=== PATIENT | male | born 1980 | race Caucasian/White ===

== ENCOUNTER → 2020-07-08 12:34 | Outpatient (CLI) | payer OTHER, SELFPAY ==
--- NOTE | ~2020-07-08 | XR_ITS ---
XR chest 2V DATE: 07/08/2020 12:50 INDICATION: Chest pain TECHNIQUE: PA and lateral views COMPARISON: None FINDINGS: Normal heart size. No hilar or mediastinal enlargement. No pulmonary infiltrate or consolid ation, pleural effusion or pulmonary vascular congestion or pneumothorax. Included skeletal structures are unremarkable. Surgical clips overlie the right upper quadrant, likely due to cholecystectomy IMPRESSION: No active cardiopulmonary disease Reviewed, dictated and finalized at location B.
== END ==
PROVIDERS: PCP Family Medicine; Visit Provider Physician Assistant
DX: R07.9 Chest pain, unspecified (principal)
CPT/HCPCS: 71046

== ENCOUNTER 2022-07-07 17:39 | Emergency (ER) | payer OTHER, SELFPAY ==
--- NOTE | ~2022-07-07 | XR_ITS ---
EXAMINATION: XR thoracic spine 3V DATE: 07/07/2022 18:24 INDICATION: Left back pain post fall TECHNIQUE: One AP, lateral and lateral swimmer's views of the thoracic spine were obtained. COMPARISON: None. FINDINGS: Alignment is normal. Vertebral body heights are normal. Mild disc height loss and mild degenerative e ndplate changes at a few levels the mid thoracic spine. Visualized portion of lungs are clear with no pleural effusion or pneumothorax. Heart size is normal. Cholecystectomy clips in right upper quadran t. IMPRESSION: 1. Mild midthoracic spondylosis. Reviewed, dictated and finalized at location A.
[2022-07-07 17:49] VITALS: BP 135/85; PULSE 57; RESP 16; TEMP 36.6; O2SAT 99
--- NOTE | 2022-07-07 18:22 | ED.FALL ---
HPI - Fall General Chief Complaint: Fall Stated Complaint: Fall Injury/Back Pain Time Seen by Provider: 07/07/22 18:05 Source: patient, RN notes reviewed and old records reviewed Mode of arrival: ambulatory Limitations: no limitations History of Present Illness HPI Narrative: 41-year-old male need by presents to Express Care with complaints of injury to thoracic back region with most intensity on left side. patient denies any shortness of breath has lung sounds in all quadrant cummins. Patient reports that his feet flew out from under him and he hit his left thoracic back on step which knocked the wind out of him. Patient reports soreness across thoracic region with pain mainly on left thoracic area on palpation. Patient has taken some Ibuprofen and has applied ice to area.Patient denies hitting his head or any LOC. MD complaint: fall Onset (ago): hour(s) (1400) Fall from: from height (distance) (5-7 feet) Place fall occurred: home Loss of consciousness: none Severity scale (1-10): 3 Associated symptoms (after fall): other (thoracic pain and muscle spasm) Related Data Allergies Allergy/AdvReac Type Severity Reaction Status Date / Time Penicillins Allergy Unknown rash Verified 05/11/21 11:40 Review of Systems Review of Systems: CONSTITUTIONAL: Denies fever, chills, or sweats. CARDIOVASCULAR: Denies chest pain, palpitations, or edema. RESPIRATORY: Denies cough or dyspnea. GASTROINTESTINAL: Denies abdominal pain, nausea, vomiting, or diarrhea. GENITOURINARY: Denies dysuria or hematuria. SKIN: Denies rash or itching. MUSCULOSKELETAL: Reports thoracic back pain. Joint pain or myalgia. NEUROLOGIC: Denies headache, numbness, or weakness. All systems reviewed & are unremarkable except as noted in HPI and below [facility] Past Medical History Medical History (Updated 07/08/22 @ 16:34 by Isabell Rene NP) Dental root implant present Surgical History Surgical History (Updated 07/08/22 @ 16:25 by Isabell Rene NP) H/O bone graft Hx laparoscopic cholecystectomy Social History Social History (Updated 07/08/22 @ 16:24 by Isabell Rene NP) Smoking status: Never smoker Alcohol intake: current Substance use type: does not use Living arrangements: with family Gender identity (if verbalized by the patient): Male Comments At time of signature, agree with nursing past medical, surgical, social and family history. There is no relevant family history pertinent to the presenting complaint Exam Narrative: GENERAL: Well-appearing, well-nourished, and in no acute distress. HEAD: Normocephalic, atraumatic. EYES: PERRLA and EOMI. NECK: Supple. No lymphadenopathy. CHEST: Clear to auscultation. No respiratory distress. HEART: Regular rate and rhythm. Distal pulses palpable and equal, cap refill <3 seconds ABDOMEN: Soft, nontender, nondistended, normal active bowel sounds, no palpable or pulsatile masses. No CVA tenderness MUSCULOSKELETAL: Normal range of motion and strength in all extremities; 5/5 strength with hip flexion and extension, dorsiflexion and extension, knee flexion and extension, plantar flexion and extension. Normal sensation in dermatomal distributions with sensitivity to light touch and pain. No midline back tenderness to palpation. No paraspinal tenderness. Transfers from lying to sitting to standing. SKIN: Warm, dry, no rash. No ecchymosis, erythema, open wounds to back. NEURO: No focal deficits. Alert and oriented x3. Reflexes intact. Normal gait. PSYCH: Normal mood and affect Course Course Emergency Course: Patient is aware of diagnosis, understands and agrees to treatment plan. Anticipatory guidance given. Patient agrees to follow-up as directed and is aware of reasons to seek care at the emergency department. Portions of this record may have been created with voice recognition software Level of Care: Express Care Visit Vital Signs Vital signs: Vital Sign
== END 2022-07-07 18:54 | disposition home or self-care (01) ==
PROVIDERS: Emergency Provider Registered Nurse; PCP Family Medicine
DX: M54.6 Pain in thoracic spine (principal)
CPT/HCPCS: 72072; 99213; G0463

== ENCOUNTER 2025-01-09 00:12 | Day surgery (SDC) | payer OTHER, SELFPAY ==
[2024-12-23 13:53] VITALS: BMI 25.3
--- OUTSIDE RECORDS SUMMARY | 2025-01-09 00:21 | XMS_ITS | Clinical Summary ---
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 Name Role Phone Unavailable Primary Care Provider Unavailabl e Social History Tobacco Use Types Packs/Day Years Used Date Smoking Tobacco: Never Assessed Sex and Gender Information Value Date Recorded Sex Assigned at Not on file Legal Sex Male 8:06 PM CDT Gender Identity Not on file Sexual Orientation Not on file Plan of Treatment Health Maintenance Due Date Last Done Comments Colorectal Cancer Screening Colonoscopy (10 Years) 1979 Annual Physical 10/15/1982 Hepatitis C 10/15/1997 DTaP, Tdap and Td Vaccines ( 1 - Tdap) 10/15/1998 Hepatitis B Vaccines (1 of 3 - 19+ 3-dose series) 10/15/1998 HPV Vaccines (1 - 3-dose SCD M series) 10/15/2006 COVID-19 Vaccine (2024-2 6 season) 2024 Influenza Adult (#1) 2024 Hepatitis A Vaccines Aged Out No long er eligible based on patient's age to complete this topic Meningococcal B Vaccine Aged Out No l onger eligible based on patient's age to complete this topic Meningococcal Vaccine Aged Out No daphne karli eligible based on patient's age to complete this topic Pneumococcal Vaccine: Pediat rics (0 to 5 Years) and At-Risk Patients (6 to 49 Years) Aged Out No longer eligible b ased on patient's age to complete this topic RSV Immunizations Under 20 Months Aged Out No longer eligible based on patient's age to complete this topic
[2025-01-09 11:55] VITALS: BP 159/88; PULSE 60; RESP 18; TEMP 36.4; O2SAT 99; BMI 25.3
[2025-01-09] MEDS: LACTATED RINGERS 1,000 ML 150 ML IV CONT (12:05)
--- NOTE | 2025-01-09 12:32 | WPDANESEPPF ---
Anes - Initial Pre Proc Eval Procedure: Operation Date: 01/09/25 13:00 Proposed Procedures p Screening Colonoscopy - Harrison Xavier MD <Melanie Lyn CRNA - Last Filed: 01/09/25 13:03> Date/Time: 01/09/25 12:32 <Melanie Lyn CRNA - Last Filed: 01/09/25 13:03> Surgeon: Harrison Xavier MD <Melanie Lyn CRNA - Last Filed: 01/09/25 13:03> Pre Op Diagnosis: Encounter for screening for malignant neoplasm of <Melanie Lyn CRNA - Last Filed: 01/09/25 13:03> Patient Data Age: 44 Gender: M Height: 1.65 m Weight: 69 kg <Melanie Lyn CRNA - Last Filed: 01/09/25 13:03> Last Vital Signs Temp 36.4 C 01/09/25 11:55 Pulse 60 01/09/25 11:55 Resp 18 01/09/25 11:55 BP 159/88 H 01/09/25 11:55 Pulse Ox 99 01/09/25 11:55 O2 Del Method Room Air 01/09/25 11:55 <Melanie Lyn CRNA - Last Filed: 01/09/25 13:03> Allergies Allergy/AdvReac Type Severity Reaction Status Date / Time Penicillins Allergy Unknown rash Verified 01/09/25 11:49 <Melanie Lyn CRNA - Last Filed: 01/09/25 13:03> Home Medications ?Medication ?Instructions ?Recorded ?Confirmed ?Type No Home Medications 06/20/24 12/23/24 History <Melanie Lyn CRNA - Last Filed: 01/09/25 13:03> Patient hx anesthesia problems: none <Melanie Lyn CRNA - Last Filed: 01/09/25 13:03> Family hx anesthesia problems: none <Melanie Lyn CRNA - Last Filed: 01/09/25 13:03> Results Review: All pre-operative results and documents have been reviewed as part of the pre-operative evaluation. <Melanie Lyn CRNA - Last Filed: 01/09/25 13:03> [facility] Past Medical History Medical History: Medical History Gallbladder disorder Lipoma of other skin and subcutaneous tissue Dental root implant present <Melanie Lyn CRNA - Last Filed: 01/09/25 13:03> Surgical History Surgical History: Surgical History H/O bone graft Hx laparoscopic cholecystectomy <Melanie Lyn CRNA - Last Filed: 01/09/25 13:03> Family History Family History: Family History Mother Hypertension Father Hypertension Sibling Hypertension Grandparent Diabetes mellitus Cancer <Melanie Lyn CRNA - Last Filed: 01/09/25 13:03> Social History Social History: Social History Smoking status: Never smoker Alcohol intake: current Drinks per week: 2 Alcohol use details: whisky Substance use: never Substance use type: does not use Do You Feel Safe in your Home?: Yes Lack of Transportation: No Lack of Food: Never True Current Housing: I Have Housing Concerned About Future Housing: No Difficulty Paying Gas/Electric Bills: No Difficulty Paying for Meds: No Currently Unemployed: No Education: Master's Degree or Higher Difficulty w/ Childcare or Family Care: No Living arrangements: with family Occupation/Education: occupation 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 Gender identity (if verbalized by the patient): Male Sexual Orientation (if Verbalized by the Patient): Straight or Heterosexual Spiritual care concerns: No Agree to blood products: Yes <Melanie Lyn CRNA - Last Filed: 01/09/25 13:03> Anes - Eval Final PreProcedure Day of Procedure 01/09/25 12:32 <Melanie Lyn CRNA - Last Filed: 01/09/25 13:03> Patient weight: normal <Melanie Lyn CRNA - Last Filed: 01/09/25 13:03> normal <Jed Nagel, DO - Last Filed: 01/09/25 13:58> Heart: regular rate and rhythm <Melanie Lyn SEAFOOD TECHNOLOGY SPECIALIST - Last Filed: 01/09/25 13:03> regular rate and rhythm <Jed Nagel, DO - Last Filed: 01/09/25 13:58> Lungs: clear to auscultation <Melanie Lyn SEAFOOD TECHNOLOGY SPECIALIST - Last Filed: 01/09/25 13:03> clear to auscultation <Jed Nagel, DO - Last Filed: 01/09/25 13:58> Airway: Mallampati scale class 1 <Melanie Lyn SEAFOOD TECHNOLOGY SPECIALIST - Last Filed: 01/09/25 13:03> Mallampati scale class 1 <Jed Nagel, DO - Last Filed: 01/09/25 13:58> Neurological: alert and oriented <Melanie Lyn SEAFOOD TECHNOLOGY SPECIALIST - Last Filed: 01/09/25 13:03> alert and oriented <Jed Nagel, DO - Last Filed: 01/09/25 13:58> Last oral intake: >/= 8 hours <Melanie Lyn SEAFOOD TECHNOLOGY SPECIALIST - Last Filed: 01/09/25 13:03> >/= 8 hours <Jed Nagel, DO - Last Filed: 01/09/25 13:58> ASA classification: I <Melanie Lyn SEAFOOD TECHNOLOGY SPECIALIST - Last Filed: 01/09/25 13:03> I <Jed Nagel, DO - Last Filed: 01/09/25 13:58> Emergent: no <Melanie Lyn SEAFOOD TECHNOLOGY SPECIALIST - Last Filed: 01/09/25 13:03> no <Jed Nagel, DO - Last Filed: 01/09/25 13:58> Anesthetic plan: proceed <Melanie Lyn SEAFOOD TECHNOLOGY SPECIALIST - Last Filed: 01/09/25 13:03> proceed <Jed Nagel, DO - Last Filed: 01/09/25 13:58> Anesthesia type and monitoring: general GIVS and standard monitoring <Melanie Lyn CRNA - Last Filed: 01/09/25 13:03> general GIVS and standard monitoring <Jed Nagel DO - Last Filed: 01/09/25 13:58> Results Review: All pre-operative results and documents have been reviewed as part of the pre-operative evaluation. <Melanie Lyn CRNA - Last Filed: 01/09/25 13:03> Informed Consent: The patient's anesthetic plan and its attendant risks and benefits were discussed with the patient/family/POA. Questions were solicited and answers provided to the satisfaction of the patient/family/POA. <Melanie Lyn CRNA - Last Filed: 01/09/25 13:03>
--- NOTE | 2025-01-09 13:00 | P.HP_ITS ---
H&P: HPI History of Present Illness Date/Time: 01/09/25 13:00 Chief Complaint: Screening colonoscopy Narrative: This is the patient's first colonoscopy. There are no GI symptoms and there is no family history of colorectal cancer. Review of Systems Review of Systems: All systems reviewed & are unremarkable except as noted in HPI and below [facility] Past Medical History Medical History Gallbladder disorder Lipoma of other skin and subcutaneous tissue Dental root implant present Surgical History Surgical History H/O bone graft Hx laparoscopic cholecystectomy Family History Family History Mother Hypertension Father Hypertension Sibling Hypertension Grandparent Diabetes mellitus Cancer Social History Social History Smoking status: Never smoker Alcohol intake: current Drinks per week: 2 Alcohol use details: whisky Substance use: never Substance use type: does not use Do You Feel Safe in your Home?: Yes Lack of Transportation: No Lack of Food: Never True Current Housing: I Have Housing Concerned About Future Housing: No Difficulty Paying Gas/Electric Bills: No Difficulty Paying for Meds: No Currently Unemployed: No Education: Master's Degree or Higher Difficulty w/ Childcare or Family Care: No Living arrangements: with family Occupation/Education: occupation 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 Gender identity (if verbalized by the patient): Male Sexual Orientation (if Verbalized by the Patient): Straight or Heterosexual Spiritual care concerns: No Agree to blood products: Yes Meds Home Medications and Allergies Home Medications ?Medication ?Instructions ?Recorded ?Confirmed ?Type No Home Medications 06/20/24 12/23/24 H istory Allergies Allergy/AdvReac Type Severity Reaction Status Date / Time Penicillins Allergy Unknown rash Verified 01/09/25 11:49 Vital Signs Vital Signs - 24 hr 01/09/25 11:55 Temperature 97.6 F Pulse Rate 60 Respiratory Rate 18 Blood Pressure 159/88 H Pulse Oximetry 99 Oxygen Delivery Room Air Exam Const: General: cooperative and healthy appearing Resp: Effort & Inspection: normal respiratory effort and able to speak in complete sentences Auscultation: clear to auscultation bilaterally Cardio: Rate: regular rate Rhythm: regular rhythm GI: Inspection: normal to inspection GI Palp: No No hepatosplenomegaly present Auscultation: normal bowel sounds Rectal Exam: deferred Skin: General skin exam: normal color Psych: Appearance: grossly normal Mental Status: mental status grossly normal Assessment and Plan Assessment and plan (1) Encounter for screening colonoscopy: Code(s): Z12.11 - Encounter for screening for malignant neoplasm of colon Status: Acute Assessment and Plan: The patient is deemed a good candidate for the procedure. Consent signed. Will proceed.
[2025-01-09] MEDS: SIMETHICONE ORAL SUSPENSION 20 MG/0.3 ML 30 ML BOTTLE 0.6 ML IRRIGATION (13:13)
--- NOTE | 2025-01-09 13:31 | S_PTH ---
PATIENT: West Garcia LOC: [facility] U#:[id number] AGE/SX: 44/M ROOM: RE01/09/[address]: Harrison Xavier MD : 1980 BED: DIS: 01/09/2025 SPEC #: [id number] RECD: 01/09/25 14:09 STATUS: YU REQ #: [id number] KUSH: 01/09/25 13:[address]: Harrison Xavier DEPT: [facility] Surgical RECD BY: Ria Cantu ENTERED: 01/09/25 14:10 SP TYPE: Surgical OTHR DR: Richard Reynolds MD Tissues: A - Colon Polypectomy B - Colon Polypectomy Procedures: Hematoxylin and Eosin Stain Gross and Microscopic Level 4
[2025-01-09 13:32] VITALS: BP 103/56; PULSE 63; RESP 16; O2SAT 100
[2025-01-09 13:42] VITALS: BP 110/68; PULSE 54; RESP 20; O2SAT 100
[2025-01-09 13:52] VITALS: BP 115/76; PULSE 50; RESP 20; O2SAT 100
== END 2025-01-09 14:03 | disposition home or self-care (01) ==
PROVIDERS: PCP Family Medicine; Visit Provider Internal Medicine Gastroenterology
PROC: 0DJD8ZZ Inspection of Lower Intestinal Tract, Via Natural or Artificial Opening Endoscopic (ICD-10-PCS; CPT 45378; principal; 2025-01-09 13:00)
DX: Z12.11 Encounter for screening for malignant neoplasm of colon (principal); D12.0 Benign neoplasm of cecum; D12.5 Benign neoplasm of sigmoid colon
CPT/HCPCS: 45385; 88305; J2003; J2704; J7120